=== PATIENT | female | born 1950 | race Caucasian/White ===

== ENCOUNTER 2017-02-19 08:46 | Day surgery (SDC) | payer MEDICARE, MEDICAID ==
[2017-02-18 10:35] VITALS: BMI 36.3
--- NOTE | 2017-02-19 01:39 | HP ---
Urban Sharp is a 66-year-old male with a history of colon polyp. The patient had a colonoscopy and polypectomy 5 years ago. The patient has family history of colon cancer. Apparently, he had a dose of cancer. At the present time, Ms. Duggan has no specific GI symptoms. He comes for colonoscopy because of history of colon polyp and also family history of colon cancer. ALLERGIES: BACTRIM Synvisc C. SOCIAL HISTORY: Former smoker. Does not drink alcohol. MEDICAL ILLNESSES: 1. Hypertension. 2. Morbid obesity. 3. Heart murmur 4. Hypothyroidism. 5. Osteoarthritis. 6. Depression. 7. Status post open cholecystectomy. 8. Status post right hip replacement. 9. Removal of a swelling over the right side which was benign tumor many years ago. PHYSICAL EXAMINATION: GENERAL: Patient is obese. VITAL SIGNS: Pulse is 70, blood pressure 130/70. HEENT: Conjunctivae clear. CARDIOVASCULAR: First and second heart sounds normal. LUNGS: Clear to auscultation. ABDOMEN: Soft to palpate. Abdomen is nontender. There is no organomegaly or masses. EXTREMITIES: Reveal no edema. ADMITTING DIAGNOSES: Colon polyps, family history of colon cancer. PLAN: Colonoscopy. SALTY
--- NOTE | 2017-02-19 12:48 | OP ---
DATE OF SURGERY: 02/19/2017 OPERATIVE PROCEDURE: Colonoscopy. PREOPERATIVE DIAGNOSIS: A 66-year-old female with history of colon polyp. She also has f amily history of colon cancer. POSTOPERATIVE DIAGNOSES: 1. Sigmoid diverticular disease. 2. Occasional diverticula of the proximal colon. 3. Hypertrophied anal papillae. PROCEDURE NOTE: The patient was placed on her left lateral position and [facility] A rectal exam was done before scope was advanced into the rectum. No lesions wer e felt on rectal exam. A Pentax video colonoscope was introduced into the rectum and advanced all t he way to the cecum. The ileocecal area, cecum, ascending colon, no pathology seen. The hepatic fl exure, no pathology seen. The transverse colon showed an occasional diverticula. The splenic flexu re, descending colon, no lesions seen. The sigmoid colon showed mild diverticular disease. Retrofl exion of the scope in the rectum showed hypertrophied anal papillae. DISCHARGE PLANNING: A 66-year-old female with colon polyp and family history of colon can cer. She had a colonoscopy, which revealed basically hypertrophied anal papillae and also mild dive rticulosis. DISCHARGE RECOMMENDATIONS: 1. High-fiber diet. 2. The patient was advised to call me if she developed abdominal pain, hematochezia, or fever. 3. Repeat colonoscopy in 3-5 years.
== END 2017-02-19 10:56 | disposition home or self-care (01) ==
LOC: SDC 08:46
PROVIDERS: ATTEND Internal Medicine Gastroenterology
PROC: 0DJD8ZZ Inspection of Lower Intestinal Tract, Via Natural or Artificial Opening Endoscopic (ICD-10-PCS; principal; 2017-02-19)
DX: Z12.11 Encounter for screening for malignant neoplasm of colon (principal); K57.30 Diverticulosis of large intestine without perforation or abscess without bleeding; K62.89 Other specified diseases of anus and rectum; I10 Essential (primary) hypertension; E03.9 Hypothyroidism, unspecified; M19.90 Unspecified osteoarthritis, unspecified site; F31.9 Bipolar disorder, unspecified; G47.30 Sleep apnea, unspecified; B15.9 Hepatitis A without hepatic coma; E66.01 Morbid (severe) obesity due to excess calories; Z68.36 Body mass index [BMI] 36.0-36.9, adult; Z88.2 Allergy status to sulfonamides; Z88.8 Allergy status to other drugs, medicaments and biological substances; Z88.1 Allergy status to other antibiotic agents; Z79.899 Other long term (current) drug therapy; Z90.49 Acquired absence of other specified parts of digestive tract; Z96.641 Presence of right artificial hip joint; Z86.010 Personal history of colon polyps; Z87.891 Personal history of nicotine dependence; Z99.89 Dependence on other enabling machines and devices

== ENCOUNTER 2017-10-02 09:23 | Outpatient (CLI) | payer MEDICARE | END 2017-10-02 09:24 | disposition home or self-care (01) | LOC: BICMAMMO 09:23 | PROVIDERS: ATTEND Family Medicine | DX: Z12.31 Encounter for screening mammogram for malignant neoplasm of breast (principal); Z80.3 Family history of malignant neoplasm of breast | CPT/HCPCS: 77063; 77067 ==

== ENCOUNTER 2019-10-19 07:52 | Outpatient (CLI) | payer MEDICARE, OTHER ==
--- NOTE | 2019-10-19 08:53 | MMO ---
Bilateral MAMMO Bilat Screen [facility]. CLINICAL HISTORY: Patient is 69 years old and is seen for screening. The patient has the following family history of breast cancer: maternal aunt, at age 45; maternal aunt, at age 45; sister; sister and maternal grandmother. The patient has no personal history of cancer. VIEWS: The views performed were: bilateral craniocaudal with tomosynthesis and bilateral mediolateral oblique with tomosynthesis. FILMS COMPARED: The present examination has been compared to prior imaging studies performed at [facility] on 07/12/2014, 08/26/2015, 10/02/2017 and 10/03/2018. This study has been interpreted with the assistance of computer-aided detection. MAMMOGRAM FINDINGS: The breasts are heterogeneously dense, which could obscure a lesion on mammography. There are stable calcifications seen in both breasts. There are no suspicious masses, suspicious calcifications, or new areas of architectural distortion. IMPRESSION: THERE IS NO MAMMOGRAPHIC EVIDENCE OF MALIGNANCY. A ROUTINE FOLLOW-UP MAMMOGRAM IN 1 YEAR IS RECOMMENDED. THE RESULTS OF THIS EXAM WERE SENT TO THE PATIENT. ACR BI-RADS Category 2 - Benign finding MAMMOGRAPHY NOTE: 1. A negative mammogram report should not delay a biopsy if a dominant of clinically suspicious mass is present. 2. Approximately 10% to 15% of breast cancers are not detected by mammography. 3. Adenosis and dense breasts may obscure an underlying neoplasm. Reported by: ORLIN HANNON MD Electonically Signed: [id number]
== END 2019-10-19 07:53 | disposition home or self-care (01) ==
LOC: BICMAMMO 07:52
PROVIDERS: ATTEND Family Medicine
DX: Z12.31 Encounter for screening mammogram for malignant neoplasm of breast (principal); Z80.3 Family history of malignant neoplasm of breast
CPT/HCPCS: 77063; 77067

== ENCOUNTER 2020-11-15 09:39 | Outpatient (CLI) | payer OTHER | END 2020-11-15 09:40 | disposition home or self-care (01) | LOC: NM 09:39 | PROVIDERS: ATTEND Orthopaedic Surgery | DX: T84.030A Mechanical loosening of internal right hip prosthetic joint, initial encounter (principal); Z96.652 Presence of left artificial knee joint; Z96.641 Presence of right artificial hip joint | CPT/HCPCS: 78315; A9503 ==

== ENCOUNTER 2021-01-06 07:55 | Outpatient (CLI) | payer MEDICARE, OTHER | END 2021-01-06 07:56 | disposition home or self-care (01) | LOC: BICMAMMO 07:55 | PROVIDERS: ATTEND Family Medicine | DX: Z12.31 Encounter for screening mammogram for malignant neoplasm of breast (principal); Z80.3 Family history of malignant neoplasm of breast | CPT/HCPCS: 77063; 77067 ==

== ENCOUNTER 2022-02-28 08:20 | Outpatient (CLI) | payer OTHER | END 2022-02-28 08:21 | disposition home or self-care (01) | LOC: BICMAMMO 08:20 | PROVIDERS: ATTEND Family Medicine | DX: Z12.31 Encounter for screening mammogram for malignant neoplasm of breast (principal); N63.10 Unspecified lump in the right breast, unspecified quadrant; Z80.3 Family history of malignant neoplasm of breast | CPT/HCPCS: 77063; 77067 ==

== ENCOUNTER 2022-03-07 08:34 | Outpatient (CLI) | payer OTHER | END 2022-03-07 08:35 | disposition home or self-care (01) | LOC: BICMAMMO 08:34 | PROVIDERS: ATTEND Family Medicine | DX: N63.15 Unspecified lump in the right breast, overlapping quadrants (principal) | CPT/HCPCS: 76642; 77065; G0279 ==

== ENCOUNTER 2022-05-23 09:32 | Outpatient (CLI) | payer MEDICARE, OTHER ==
[2022-05-23 12:02] LABS: #Basophils 0.1 10x3/uL (0.0-0.2); #Eosinphils 0.2 10x3/uL (0.0-0.5); #Monocytes 0.8 10x3/uL (0.0-1.1); #Neutrophils 8.5 10x3/uL (1.5-8.4); %Basophils 0.5 % (0.0-2.0); %Eosinophils 1.6 % (0.0-6.0); %Lymphocytes 18.1 % (18.0-47.0); %Monocytes 6.6 % (0.0-10.0); %Neutrophils 71.5 % (40.0-75.0); Hemoglobin 13.6 g/dL (12.0-15.5); Mean Corpuscular HGB CONC 33.6 g/dL (32.0-36.0); Mean Corpuscular Hemoglobin 28.2 pg (27.0-33.0); Mean Platelet Volume 9.5 fl (7.4-10.4); Platelet Count 419 10x3/uL (150-450); RBC Distribution Width 14.2 % (11.5-14.5); Red Blood Cell (RBC) Count 4.82 10x6/uL (3.90-5.03); White Blood Cell (WBC) Count 11.9 10x3/uL (3.5-10.5)
[2022-05-23 12:16] LABS: INR-International Normal Ratio 0.9; Prothrombin Time 10.3 sec (9.5-12.1)
[2022-05-23 12:18] LABS: Anion Gap 19 mmol/L (10-20); BUN (Urea Nitrogen) 16 mg/dL (9.8-20.1); Calc. Creatinine Clearance 0 mL/min (70-130); Calcium 9.7 mg/dL (7.8-10.44); Carbon Dioxide 24 mmol/L (23-31); Chloride 101 mmol/L (98-107); Estimated GFR 74; Glucose 94 mg/dL (80-115); Potassium 3.3 mmol/L (3.5-5.1); Sodium 141 mmol/L (136-145)
== END 2022-05-23 09:33 | disposition home or self-care (01) ==
LOC: LABBT 09:32
PROVIDERS: ATTEND Orthopaedic Surgery
DX: Z01.818 Encounter for other preprocedural examination (principal); T84.010A Broken internal right hip prosthesis, initial encounter
CPT/HCPCS: 80048; 85025; 85610; 87081; 93005; 93010

== ENCOUNTER 2022-05-23 10:00 | Inpatient (IN) | payer OTHER, MEDICAID ==
[2022-05-24] MEDS ORDERED: Bupivacaine PF 0.5% 30 ML VIAL ONE (06:41)
[2022-05-24] MEDS ORDERED: Phenylephrine 10 MG/ML VIAL ONE (06:43)
[2022-05-24] MEDS ORDERED: Ropivacaine 0.2% HCl/PF 0 ML ONE (06:49)
[2022-05-24] MEDS ORDERED: Sodium Chloride 0.9% 100 ML ONE ×2 (06:56→07:03)
[2022-05-24] MEDS ORDERED: CEFAZOLIN 2 GM VIAL ONE (06:56)
[2022-05-24] MEDS ORDERED: Tranexamic Acid 1,000 MG/10 ML VIAL ONE (06:59)
[2022-05-24] MEDS ORDERED: Vancomycin (BATCH) 1.5 GRAM/300 ML BAG ONE (06:59)
[2022-05-24] MEDS ORDERED: Acetaminophen 325 MG TAB PO PRN (07:00)
[2022-05-24] MEDS ORDERED: Fentanyl 100 MCG/2 ML VIAL SLOW IVP PRN ×2 (07:00)
[2022-05-24] MEDS ORDERED: Ondansetron PF 4 MG/2 ML Vial IVP PRN (07:00)
[2022-05-24] MEDS ORDERED: diphenhydrAMINE 25 MG CAP PO PRN (07:00)
[2022-05-24] MEDS ORDERED: Zolpidem Tartrate 5 MG TAB PO PRN (07:00)
[2022-05-24] MEDS ORDERED: Promethazine HCl 25 MG/ML VIAL IM PRN ×2 (07:00→09:21)
[2022-05-24 07:04] LABS: SARS-CoV-2 NAA Rapid Test Not Detected (NotDetected)
[2022-05-24] MEDS ORDERED: NEOSTIGMINE 3 MG/3 ML SYR 3 MG/3 ML SYRINGE ONE (07:14)
[2022-05-24] MEDS ORDERED: Glycopyrrolate 0.2 MG/ML 5 ML SYRINGE ONE (07:14)
[2022-05-24] MEDS ORDERED: PROPOFOL 200 MG/20 ML VIAL ONE (07:14)
[2022-05-24] MEDS ORDERED: Dexamethasone 20 MG/5 ML VIAL ONE (07:14)
[2022-05-24] MEDS ORDERED: Rocuronium Bromide 10 MG/ML (10ML VIAL) ONE (07:14)
[2022-05-24] MEDS ORDERED: Lidocaine 1% MPF 2 ML VIAL ONE (07:21)
[2022-05-24] MEDS ORDERED: Midazolam HCl 2 mg/2 ml Vial ONE (07:21)
[2022-05-24] MEDS ORDERED: Fentanyl 100 MCG/2 ML VIAL ONE ×4 (07:21→14:41)
[2022-05-24] MEDS ORDERED: HYDROmorphone 2 MG/ML VIAL ONE (08:24)
[2022-05-24] MEDS ORDERED: Ondansetron HCl/PF 4 MG/2 ML Vial IVP PRN (09:21)
[2022-05-24] MEDS: Sodium Chloride 0.9% 1,000 ML IV SCH ×2 (15:29→15:44)
[2022-05-24] MEDS: Aspirin 81 mg Enteric Coated Tablet PO SCH ×2 (15:30→21:29)
[2022-05-24 15:31] VITALS: BMI 33.5
[2022-05-24] MEDS: CEFAZOLIN 2 GM in Sodium Chloride 0.9% 100 ML IVPB SCH ×2 (15:44→22:33)
[2022-05-24] MEDS: HYDROcodone/Acetaminophen 10/325 mg Tablet PO PRN ×2 (17:02→21:29)
[2022-05-25] MEDS: HYDROcodone/Acetaminophen 10/325 mg Tablet PO PRN ×4 (03:04→20:58)
[2022-05-25] MEDS: Sodium Chloride 0.9% 1,000 ML IV SCH ×3 (03:34→23:51)
[2022-05-25 06:00] LABS: Hemoglobin 10.4 g/dL (12.0-16.0); Mean Corpuscular HGB CONC 33.5 g/dL (32.0-36.0); Mean Corpuscular Hemoglobin 29.4 pg (27.0-31.0); Mean Platelet Volume 6.8 fL (7.4-10.4); Platelet Count 323 10x3/uL (130-400); RBC Distribution Width 13.1 % (11.5-14.5); Red Blood Cell (RBC) Count 3.52 mill/uL (4.20-5.40); White Blood Cell (WBC) Count 12.7 10x3/uL (4.8-10.8)
[2022-05-25] MEDS: Senokot S 8.6-50 MG TAB PO SCH ×2 (09:25→20:58)
[2022-05-25] MEDS: Aspirin 81 mg Enteric Coated Tablet PO SCH ×2 (09:25→20:58)
[2022-05-25] MEDS: Ferrous Gluconate 324 MG TAB PO SCH ×2 (09:25→17:26)
[2022-05-25] MEDS: Multivitamin W/ Minerals 1 TAB PO SCH (09:26)
[2022-05-26] MEDS: HYDROcodone/Acetaminophen 10/325 mg Tablet PO PRN ×5 (03:43→22:26)
[2022-05-26 06:13] LABS: Hemoglobin 10.1 g/dL (12.0-16.0); Mean Corpuscular HGB CONC 33.9 g/dL (32.0-36.0); Mean Corpuscular Hemoglobin 29.5 pg (27.0-31.0); Mean Corpuscular Volume 86.8 fl (78.0-98.0); Platelet Count 323 10x3/uL (130-400); RBC Distribution Width 13.2 % (11.5-14.5); Red Blood Cell (RBC) Count 3.42 mill/uL (4.20-5.40); White Blood Cell (WBC) Count 13.7 10x3/uL (4.8-10.8)
[2022-05-26] MEDS: Senokot S 8.6-50 MG TAB PO SCH ×2 (08:33→22:25)
[2022-05-26] MEDS: Aspirin 81 mg Enteric Coated Tablet PO SCH ×2 (08:33→22:22)
[2022-05-26] MEDS: Ferrous Gluconate 324 MG TAB PO SCH ×2 (08:34→17:16)
[2022-05-26] MEDS: Multivitamin W/ Minerals 1 TAB PO SCH (08:34)
[2022-05-26] MEDS ORDERED: FLUoxetine HCl 20 MG CAP PO SCH (09:45)
[2022-05-26] MEDS: Sodium Chloride 0.9% 1,000 ML IV SCH ×2 (09:54→19:00)
[2022-05-26] MEDS ORDERED: AMPHETAMINE PO SCH (21:00)
[2022-05-26] MEDS ORDERED: DEXTROAMPHETAMINE PO SCH (21:00)
[2022-05-26] MEDS ORDERED: PATIENT'S HOME MEDICATION PO SCH (21:00)
[2022-05-26] MEDS: Topiramate 100 MG TAB PO SCH (22:22)
[2022-05-26] MEDS: Lurasidone 20 MG TABLET PO SCH (22:22)
[2022-05-26] MEDS: lamoTRIgine 100 MG TAB PO SCH (22:25)
[2022-05-26] MEDS: Atorvastatin Calcium 40 MG TAB PO SCH (22:25)
[2022-05-26] MEDS: Famotidine 20 MG TAB PO SCH (22:25)
[2022-05-26] MEDS: Loratadine 10 MG TAB PO SCH (22:26)
[2022-05-26] MEDS: Hydrochlorothiazide 25 MG TAB PO SCH (22:26)
[2022-05-27] MEDS: HYDROcodone/Acetaminophen 10/325 mg Tablet PO PRN ×6 (02:26→22:38)
[2022-05-27] MEDS: Sodium Chloride 0.9% 1,000 ML IV SCH ×2 (05:16→15:26)
[2022-05-27] MEDS: Levothyroxine Sodium 75 MCG TAB PO SCH (06:25)
[2022-05-27] MEDS: Potassium Chloride 20 MEQ TAB PO SCH (08:50)
[2022-05-27] MEDS: Aspirin 81 mg Enteric Coated Tablet PO SCH ×2 (08:50→21:05)
[2022-05-27] MEDS: Amlodipine 5 MG TAB PO SCH (08:50)
[2022-05-27] MEDS: Ferrous Gluconate 324 MG TAB PO SCH ×2 (08:50→16:26)
[2022-05-27] MEDS: Senokot S 8.6-50 MG TAB PO SCH ×2 (08:51→21:05)
[2022-05-27] MEDS: Hydrochlorothiazide 25 MG TAB PO SCH ×2 (08:51→21:05)
[2022-05-27] MEDS: FLUoxetine HCl 20 MG CAP PO SCH (08:51)
[2022-05-27] MEDS: Multivitamin W/ Minerals 1 TAB PO SCH (08:51)
[2022-05-27] MEDS: Lurasidone 20 MG TABLET PO SCH (21:04)
[2022-05-27] MEDS: Atorvastatin Calcium 40 MG TAB PO SCH (21:05)
[2022-05-27] MEDS: Topiramate 100 MG TAB PO SCH (21:05)
[2022-05-27] MEDS: Famotidine 20 MG TAB PO SCH (21:05)
[2022-05-27] MEDS: clonazePAM 1 MG TAB PO PRN (21:05)
[2022-05-27] MEDS: lamoTRIgine 100 MG TAB PO SCH (21:05)
[2022-05-27] MEDS: Loratadine 10 MG TAB PO SCH (21:05)
[2022-05-28] MEDS: Sodium Chloride 0.9% 1,000 ML IV SCH ×3 (02:00→21:30)
[2022-05-28] MEDS: HYDROcodone/Acetaminophen 10/325 mg Tablet PO PRN ×4 (04:45→20:30)
[2022-05-28] MEDS: Levothyroxine Sodium 75 MCG TAB PO SCH (06:22)
[2022-05-28] MEDS: Hydrochlorothiazide 25 MG TAB PO SCH ×2 (07:55→20:29)
[2022-05-28] MEDS: Potassium Chloride 20 MEQ TAB PO SCH (07:56)
[2022-05-28] MEDS: Ferrous Gluconate 324 MG TAB PO SCH ×2 (07:56→16:38)
[2022-05-28] MEDS: Amlodipine 5 MG TAB PO SCH (07:56)
[2022-05-28] MEDS: Multivitamin W/ Minerals 1 TAB PO SCH (07:56)
[2022-05-28] MEDS: Senokot S 8.6-50 MG TAB PO SCH ×2 (07:56→20:31)
[2022-05-28] MEDS: FLUoxetine HCl 20 MG CAP PO SCH (07:56)
[2022-05-28] MEDS: Aspirin 81 mg Enteric Coated Tablet PO SCH ×2 (07:56→20:31)
[2022-05-28] MEDS: lamoTRIgine 100 MG TAB PO SCH (20:29)
[2022-05-28] MEDS: Lurasidone 20 MG TABLET PO SCH (20:29)
[2022-05-28] MEDS: Loratadine 10 MG TAB PO SCH (20:31)
[2022-05-28] MEDS: Topiramate 100 MG TAB PO SCH (20:31)
[2022-05-28] MEDS: Atorvastatin Calcium 40 MG TAB PO SCH (20:31)
[2022-05-28] MEDS: Famotidine 20 MG TAB PO SCH (20:31)
[2022-05-28] MEDS: clonazePAM 1 MG TAB PO PRN (20:31)
[2022-05-29] MEDS: HYDROcodone/Acetaminophen 10/325 mg Tablet PO PRN ×3 (00:32→09:54)
[2022-05-29] MEDS: Levothyroxine Sodium 75 MCG TAB PO SCH (05:48)
[2022-05-29] MEDS: Sodium Chloride 0.9% 1,000 ML IV SCH (07:39)
[2022-05-29 08:08] VITALS: TEMP 97.8
[2022-05-29] MEDS: FLUoxetine HCl 20 MG CAP PO SCH (08:29)
[2022-05-29] MEDS: Hydrochlorothiazide 25 MG TAB PO SCH (08:29)
[2022-05-29] MEDS: Aspirin 81 mg Enteric Coated Tablet PO SCH (08:29)
[2022-05-29] MEDS: Potassium Chloride 20 MEQ TAB PO SCH (08:29)
[2022-05-29] MEDS: Amlodipine 5 MG TAB PO SCH (08:29)
[2022-05-29] MEDS: Senokot S 8.6-50 MG TAB PO SCH (08:29)
[2022-05-29] MEDS: Multivitamin W/ Minerals 1 TAB PO SCH (08:29)
[2022-05-29] MEDS: Ferrous Gluconate 324 MG TAB PO SCH (08:30)
[2022-05-29 12:41] VITALS: BP 123/79
== END 2022-05-29 17:06 | disposition swing bed (61) | DRG 468 ==
LOC: SURG A 05-24 05:29
PROVIDERS: ADMIT Orthopaedic Surgery; ATTEND Orthopaedic Surgery
PROC: 0SRA0JA Replacement of Right Hip Joint, Acetabular Surface with Synthetic Substitute, Uncemented, Open Approach (ICD-10-PCS; principal; 2022-05-24)
PROC: 0SPA0JZ Removal of Synthetic Substitute from Right Hip Joint, Acetabular Surface, Open Approach (ICD-10-PCS; 2022-05-24)
PROC: 3E0T3BZ Introduction of Anesthetic Agent into Peripheral Nerves and Plexi, Percutaneous Approach (ICD-10-PCS; 2022-05-24)
DX: T84.010A Broken internal right hip prosthesis, initial encounter (principal); Z20.822 Contact with and (suspected) exposure to COVID-19; Y83.1 Surgical operation with implant of artificial internal device as the cause of abnormal reaction of the patient, or of later complication, without mention of misadventure at the time of the procedure; Z96.652 Presence of left artificial knee joint; F31.9 Bipolar disorder, unspecified; F98.8 Other specified behavioral and emotional disorders with onset usually occurring in childhood and adolescence; Z90.49 Acquired absence of other specified parts of digestive tract; Z79.899 Other long term (current) drug therapy; Z88.1 Allergy status to other antibiotic agents; Z88.8 Allergy status to other drugs, medicaments and biological substances
CPT/HCPCS: 36415; 80048; 85025; 85027; 85610; 87081; 93005; 93010; C1713; C1776; J1100; J1170; J2250; J2370; J2704; J2795; J3010; J3370; J3490; J7050; S0020; U0002

== ENCOUNTER 2023-03-11 01:31 | Inpatient (IN) | payer OTHER ==
[2023-03-11] MEDS ORDERED: fentaNYL 50 mcg/mL 1 mL Vial ONE (01:57)
[2023-03-11] MEDS ORDERED: Ketorolac Tromethamine 30 MG/ML VIAL ONE (01:57)
[2023-03-11 02:00] LABS: #Eosinphils 0.2 thou/uL (0.0-0.7); #Monocytes 0.8 thou/uL (0.11-0.59); #Neutrophils 8.5 thou/uL (1.40-6.50); %Basophils 0.3 % (0.0-1.0); %Eosinophils 1.1 % (0.0-10.0); %Lymphocytes 27.7 % (21.0-51.0); %Monocytes 5.9 % (0.0-10.0); %Neutrophils 64.3 % (42.0-75.0); Hematocrit 40.7 % (36.0-47.0); Hemoglobin 13.6 g/dL (12.0-16.0); Mean Corpuscular HGB CONC 33.4 g/dL (32.0-36.0); Mean Corpuscular Hemoglobin 28.1 pg (27.0-31.0); Mean Corpuscular Volume 84.1 fl (78.0-98.0); Mean Platelet Volume 9.2 fL (7.4-10.4); Platelet Count 399 10x3/uL (130-400); RBC Distribution Width 14.2 % (11.5-14.5); Red Blood Cell (RBC) Count 4.84 mill/uL (4.20-5.40); White Blood Cell (WBC) Count 13.2 10x3/uL (4.8-10.8)
[2023-03-11 02:23] LABS: ALT (SGPT) 18 U/L (8-55); AST (SGOT) 15 U/L (5-34); Albumin 4.8 g/dL (3.4-4.8); Alkaline Phosphatase 108 U/L (40-110); Anion Gap 18 mmol/L (10-20); BUN (Urea Nitrogen) 17 mg/dL (9.8-20.1); Bilirubin, Total 0.5 mg/dL (0.2-1.2); Calc. Creatinine Clearance 0 mL/min (70-130); Calcium 9.9 mg/dL (7.8-10.44); Carbon Dioxide 24 mmol/L (23-31); Chloride 100 mmol/L (98-107); Estimated GFR 65; Globulin 3.1 g/dL (2.4-3.5); Glucose 117 mg/dL (83-110); Protein, Total 7.9 g/dL (5.8-8.1); Sodium 139 mmol/L (136-145)
[2023-03-11] MEDS ORDERED: Potassium Chloride 20 MEQ TAB ONE (02:47)
[2023-03-11] MEDS ORDERED: Acetaminophen 325 MG TAB PO PRN (06:30)
[2023-03-11] MEDS ORDERED: Ondansetron PF 4 MG/2 ML Vial IVP PRN (06:30)
[2023-03-11] MEDS ORDERED: Ondansetron ODT 4 MG TAB SL PRN (06:30)
[2023-03-11] MEDS ORDERED: Ipratropium/Albuterol 3 ML NEB NEB PRN (07:28)
[2023-03-11 08:09] VITALS: BMI 34.9
[2023-03-11 10:55] LABS: Magnesium 1.5 mg/dL (1.6-2.6)
[2023-03-11] MEDS: Potassium Chloride 20 MEQ in Premix 1 BAG IVPB SCH ×2 (12:21→16:19)
[2023-03-11] MEDS: Famotidine/PF 20 mg/2ml Vial SLOW IVP SCH ×2 (12:21→20:33)
[2023-03-11] MEDS: Morphine 2 MG/ML VIAL SLOW IVP PRN ×2 (12:44→16:19)
[2023-03-11] MEDS: Magnesium 2 GM/50 ML(in water) 4 GM in Premix 1 BAG IVPB SCH ×2 (12:48→15:04)
[2023-03-11] MEDS: lamoTRIgine 100 MG TAB PO SCH (20:33)
[2023-03-11] MEDS: Lurasidone 20 MG TABLET PO SCH (20:33)
[2023-03-11] MEDS ORDERED: Non-Formulary Item 1 EACH (Lamotrigine [Lamictal] 200 MG Tablet) PO SCH (21:00)
[2023-03-11] MEDS ORDERED: Non-Formulary Item 1 EACH (Lurasidone Hcl [Latuda] 80 MG Tablet) PO SCH (21:00)
[2023-03-11] MEDS ORDERED: lamoTRIgine 100 MG TAB PO SCH (21:00)
[2023-03-12 05:17] LABS: #Eosinphils 0.2 thou/uL (0.0-0.7); #Monocytes 0.7 thou/uL (0.11-0.59); #Neutrophils 4.5 thou/uL (1.40-6.50); %Basophils 0.5 % (0.0-1.0); %Eosinophils 2.7 % (0.0-10.0); %Monocytes 8.1 % (0.0-10.0); Hematocrit 38.3 % (36.0-47.0); Hemoglobin 12.4 g/dL (12.0-16.0); Mean Corpuscular HGB CONC 32.4 g/dL (32.0-36.0); Mean Corpuscular Hemoglobin 27.9 pg (27.0-31.0); Mean Corpuscular Volume 86.1 fl (78.0-98.0); Mean Platelet Volume 9.5 fL (7.4-10.4); Platelet Count 367 10x3/uL (130-400); RBC Distribution Width 14.4 % (11.5-14.5); Red Blood Cell (RBC) Count 4.45 mill/uL (4.20-5.40); White Blood Cell (WBC) Count 8.4 10x3/uL (4.8-10.8)
[2023-03-12 05:44] LABS: Anion Gap 15 mmol/L (10-20); BUN (Urea Nitrogen) 13 mg/dL (9.8-20.1); Calc. Creatinine Clearance 88 mL/min (70-130); Calcium 9.1 mg/dL (7.8-10.44); Carbon Dioxide 26 mmol/L (23-31); Chloride 105 mmol/L (98-107); Estimated GFR 64; Glucose 104 mg/dL (83-110); Magnesium 1.8 mg/dL (1.6-2.6); Potassium 3.2 mmol/L (3.5-5.1); Sodium 143 mmol/L (136-145)
[2023-03-12] MEDS: Acetaminophen 325 MG TAB PO SCH ×4 (06:09→23:31)
[2023-03-12] MEDS ORDERED: Morphine 2 MG/ML VIAL SLOW IVP SCH (06:15)
[2023-03-12] MEDS: Acetaminophen/Codeine 30-300mg Tablet PO SCH ×4 (06:18→23:30)
[2023-03-12] MEDS ORDERED: clonazePAM 1 MG TAB PO PRN (08:29)
[2023-03-12] MEDS: Polyethylene Glycol 3350 17 GM Packet PO SCH (08:52)
[2023-03-12] MEDS: Potassium Chloride 20 MEQ TAB PO SCH (08:52)
[2023-03-12] MEDS: Cyclobenzaprine 10 MG TAB PO PRN (08:52)
[2023-03-12] MEDS: FLUoxetine HCl 20 MG CAP PO SCH (08:52)
[2023-03-12] MEDS: Senokot 8.6 MG TAB PO SCH (08:53)
[2023-03-12] MEDS: Atorvastatin Calcium 40 MG TAB PO SCH (08:53)
[2023-03-12] MEDS: Levothyroxine Sodium 75 MCG TAB PO SCH (08:53)
[2023-03-12] MEDS: Famotidine/PF 20 mg/2ml Vial SLOW IVP SCH ×2 (08:53→22:00)
[2023-03-12] MEDS: Amlodipine 5 MG TAB PO SCH (08:54)
[2023-03-12] MEDS ORDERED: DEXTROAMPHETAMINE PO SCH (09:00)
[2023-03-12] MEDS ORDERED: AMPHETAMINE PO SCH (09:00)
[2023-03-12] MEDS ORDERED: Gabapentin 100 MG CAP PO SCH (09:00)
[2023-03-12] MEDS ORDERED: HYDROCHLOROTHIAZIDE 12.5 MG PO SCH (09:00)
[2023-03-12] MEDS: Hydrochlorothiazide 25 MG TAB PO SCH ×2 (09:01→20:22)
[2023-03-12] MEDS: Gabapentin 300 MG CAP PO SCH (20:21)
[2023-03-12] MEDS: Lurasidone 20 MG TABLET PO SCH (20:21)
[2023-03-12] MEDS: lamoTRIgine 100 MG TAB PO SCH (20:22)
[2023-03-12] MEDS: traMADol HCl 50 MG TAB PO PRN (20:25)
[2023-03-12] MEDS ORDERED: Loratadine 10 MG TAB PO SCH (21:00)
[2023-03-12] MEDS ORDERED: Famotidine 20 MG TAB PO SCH (21:00)
[2023-03-12] MEDS ORDERED: Cetirizine HCl 10 MG TAB PO SCH (21:00)
[2023-03-13] MEDS: Acetaminophen 325 MG TAB PO SCH ×2 (05:13→12:27)
[2023-03-13] MEDS: Acetaminophen/Codeine 30-300mg Tablet PO SCH ×2 (05:13→12:27)
[2023-03-13] MEDS ORDERED: Alendronate Sodium 70 mg Tablet PO SCH (06:00)
[2023-03-13] MEDS: FLUoxetine HCl 20 MG CAP PO SCH (10:07)
[2023-03-13] MEDS: Cyclobenzaprine 10 MG TAB PO PRN (10:08)
[2023-03-13] MEDS: Potassium Chloride 20 MEQ TAB PO SCH (10:08)
[2023-03-13] MEDS: Atorvastatin Calcium 40 MG TAB PO SCH (10:08)
[2023-03-13] MEDS: Senokot 8.6 MG TAB PO SCH (10:08)
[2023-03-13] MEDS: Hydrochlorothiazide 25 MG TAB PO SCH (10:08)
[2023-03-13] MEDS: Amlodipine 5 MG TAB PO SCH (10:09)
[2023-03-13] MEDS: Polyethylene Glycol 3350 17 GM Packet PO SCH (10:10)
[2023-03-13] MEDS: Gabapentin 300 MG CAP PO SCH (10:10)
[2023-03-13] MEDS: Levothyroxine Sodium 75 MCG TAB PO SCH (10:10)
[2023-03-13] MEDS: traMADol HCl 50 MG TAB PO PRN (10:11)
[2023-03-13 11:56] VITALS: BP 115/75; TEMP 98
== END 2023-03-13 14:23 | DRG 534 ==
LOC: ERS 01:31 → SURG A 06:25
PROVIDERS: ADMIT Student in an Organized Health Care Education/Training Program; ATTEND Student in an Organized Health Care Education/Training Program
PROC: 0HQEXZZ Repair Left Lower Arm Skin, External Approach (ICD-10-PCS; principal; 2023-03-11)
DX: S72.412A Displaced unspecified condyle fracture of lower end of left femur, initial encounter for closed fracture (principal); I10 Essential (primary) hypertension; E03.9 Hypothyroidism, unspecified; E78.00 Pure hypercholesterolemia, unspecified; Z96.653 Presence of artificial knee joint, bilateral; Z96.641 Presence of right artificial hip joint; F31.9 Bipolar disorder, unspecified; S51.012A Laceration without foreign body of left elbow, initial encounter; E66.9 Obesity, unspecified; E87.6 Hypokalemia; W19.XXXA Unspecified fall, initial encounter; Z68.34 Body mass index [BMI] 34.0-34.9, adult; Y92.008 Other place in unspecified non-institutional (private) residence as the place of occurrence of the external cause; Z90.49 Acquired absence of other specified parts of digestive tract; Z98.890 Other specified postprocedural states; Z88.1 Allergy status to other antibiotic agents; Z88.2 Allergy status to sulfonamides
CPT/HCPCS: 36415; 80048; 80053; 83735; 85025; 93005; 96374; 96375; J1650; J1885; J2272; J3010; J3475; J3480; S0028

== ENCOUNTER 2023-08-08 08:18 | Outpatient (CLI) | payer OTHER, MEDICAID | END 2023-08-08 08:19 | disposition home or self-care (01) | LOC: BICMAMMO 08:18 | PROVIDERS: ATTEND Family Medicine | DX: Z12.31 Encounter for screening mammogram for malignant neoplasm of breast (principal); M81.0 Age-related osteoporosis without current pathological fracture; N64.89 Other specified disorders of breast; M85.852 Other specified disorders of bone density and structure, left thigh; Z80.3 Family history of malignant neoplasm of breast | CPT/HCPCS: 77063; 77067; 77080 ==